=== PATIENT | male | born 1960 | race Two or more races ===

== ENCOUNTER 2020-03-28 22:49 | Emergency (ER) | payer MEDICAID ==
[~2020-03-28] VITALS: Ht 175.3 cm; Wt 77.1 kg
--- NOTE | 2020-03-28 23:02 | NUR ---
PT AAOX4. BIBSELF C/O ABDOMINAL PAIN X1 WEEK, SOB X1 DAY. COVID (+) 3WEEKS AGO, TESTED COVID NEGATIVE 3 DAYS AGO. PT PLACED IN BED 18 ON MONITOR AND PULSE OX. AWAITING FOR MD TO EVAL AND PLACE ORDERS.
--- NOTE | 2020-03-28 23:38 | NUR ---
LINE ESTABLISHED RAC 20G, BLOOD WORK SETN TO LAB. VSS.
[2020-03-28] MEDS ORDERED: PANTOPRAZOLE 40 MG VIAL ONE (23:51)
[2020-03-28] MEDS ORDERED: LIDOCAINE VISCOUS 2% UD 15 ML UDC ONE (23:51)
[2020-03-28] MEDS ORDERED: MAG HYDROX/AL HYDROX/SIMETH 30 ML UDC ONE (23:51)
[2020-03-28 23:59] LABS: BASOPHILS # (AUTO) 0.1 /CMM (0.0-0.2); EOSINOPHILS % (AUTO) 1.6 % (0.0-6.0); HEMATOCRIT 43 % (39-51); LYMPHOCYTES # (AUTO) 1.7 /CMM (0.8-4.8); LYMPHOCYTES % (AUTO) 29.3 % (20.0-44.0); MEAN CORPUSCULAR HGB CONC 35 g/dl (31.0-36.0); MEAN CORPUSCULAR VOLUME 88 fL (80-96); MONOCYTES # (AUTO) 0.4 /CMM (0.1-1.30); MONOCYTES % (AUTO) 6.4 % (2.0-12.0); NEUTROPHILS # (AUTO) 3.6 /CMM (1.8-8.9); NEUTROPHILS % (AUTO) 61.7 % (43.0-81.0); PLATELET COUNT (AUTO) 278 /CMM (150-450); RED BLOOD CELL COUNT(AUTO) 4.94 MIL/uL (4.5-6.0); WHITE BLOOD COUNT (AUTO) 5.8 K/uL (4.3-11.0)
[2020-03-29] MEDS ORDERED: IV NS 0.9% 1,000 ML BAG IV ONE
[2020-03-29] MEDS ORDERED: LIDOCAINE VISCOUS 2% UD 15 ML UDC MM ONE
[2020-03-29] MEDS ORDERED: MAG HYDROX/AL HYDROX/SIMETH 30 ML UDC PO ONE
[2020-03-29] MEDS ORDERED: PANTOPRAZOLE 40 MG VIAL IV ONE
--- NOTE | 2020-03-29 00:01 | NUR ---
PT MEDICATED. VSS.
[2020-03-29 00:09] LABS: CALCIUM, SERUM 9.5 mg/dL (8.5-10.1); CREATININE 0.9 mg/dL (0.6-1.3); POTASSIUM 3.8 mmol/L (3.5-5.1)
[2020-03-29 00:15] LABS: ALBUMIN 3.5 g/dL (3.4-5.0); BILIRUBIN,DIRECT 0.1 mg/dL (0.0-0.2); BILIRUBIN,TOTAL 0.5 mg/dL (0.2-1.0); TOTAL PROTEIN, SERUM 7.7 g/dL (6.4-8.2)
--- NOTE | 2020-03-29 00:50 | NUR ---
IV removed. Catheter intact and site benign. Pressure and 4x4 applied to site. No bleeding noted. Patient discharged to home in stable condition. Written and verbal after care instructions given. Patient verbalizes understanding of instruction.
[2020-03-29 01:02] LABS: BILIRUBIN,URINE Negative (NEGATIVE); BLOOD, URINE Trace-lysed Ery/uL (NEGATIVE); COLOR,URINE YELLOW (YELLOW); LEUKOCYTE ESTERASE ,URINE Negative (NEGATIVE); NITRITE, URINE Negative (NEGATIVE); PROTEIN,URINE Negative (NEGATIVE); UGLUCOSE Negative (NEGATIVE); UROBILINOGEN,URINE 0.2 EU/dL (0.2)
[2020-03-29 01:17] VITALS: BP 143/89
[2020-03-29 01:35] LABS: BACTERIA,URINE None seen /HPF (None Seen); RBC,URINE 0-2 /HPF (0-2); SQUAMOUS EPITHELIAL CELL,UR Few /HPF (None Seen); WBC,URINE 0-2 /HPF (0-3)
== END 2020-03-29 00:50 | disposition home or self-care (01) ==
LOC: ER 22:54
DX: J18.9 Pneumonia, unspecified organism (principal); R10.12 Left upper quadrant pain; Z20.828 Contact with and (suspected) exposure to other viral communicable diseases
CPT/HCPCS: 36415; 74176; 80048; 80076; 81001; 83690; 85025; 96361; 96374; 99284; C9113; J7030

== ENCOUNTER 2021-03-12 09:06 | Emergency (ER) | payer SELFPAY ==
[~2021-03-12] VITALS: Ht 175.3 cm; Wt 79.4 kg
[2021-03-12 09:14] VITALS: BP 161/108
--- NOTE | 2021-03-12 09:32 | NUR ---
[employer] AT BEDSIDE FOR XRAY.
--- NOTE | 2021-03-12 10:26 | NUR ---
Patient discharged to home in stable condition. Written and verbal after care instructions given. Patient verbalizes understanding of instruction.
== END 2021-03-12 10:27 | disposition home or self-care (01) ==
LOC: ER 09:09
DX: M54.16 Radiculopathy, lumbar region (principal); W01.0XXA Fall on same level from slipping, tripping and stumbling without subsequent striking against object, initial encounter; Y93.89 Activity, other specified; Y92.89 Other specified places as the place of occurrence of the external cause; Y99.8 Other external cause status
CPT/HCPCS: 72100-TC; 73502

== ENCOUNTER 2024-07-26 09:11 | Emergency (ER) | payer MEDICAID, OTHER ==
[~2024-07-26] VITALS: Ht 175.3 cm; Wt 81.6 kg
[2024-07-26] MEDS ORDERED: KETOROLAC TROMETHAMINE 15 MG/ML VIAL ONE (09:34)
[2024-07-26] MEDS: KETOROLAC TROMETHAMINE 15 MG/ML VIAL IV ONE (09:38)
[2024-07-26 09:42] LABS: BASOPHILS # (AUTO) 0.1 K/uL (0.0-0.2); BASOPHILS % (AUTO) 1.2 % (0.0-2.0); EOSINOPHILS # (AUTO) 0.1 K/uL (0.0-0.7); EOSINOPHILS % (AUTO) 2.8 % (0.0-6.0); HEMATOCRIT 45 % (39-51); HEMOGLOBIN 15.6 g/dL (13.5-17.5); LYMPHOCYTES # (AUTO) 2.1 K/uL (0.8-4.8); LYMPHOCYTES % (AUTO) 40.4 % (20.0-44.0); MEAN CORPUSCULAR HEMOGLOBIN 31 PG (26.0-33.0); MEAN CORPUSCULAR HGB CONC 35 g/dl (31.0-36.0); MEAN CORPUSCULAR VOLUME 88 fL (80-96); MONOCYTES # (AUTO) 0.3 K/uL (0.1-1.30); MONOCYTES % (AUTO) 5.6 % (2.0-12.0); NEUTROPHILS # (AUTO) 2.6 K/uL (1.8-8.9); PLATELET COUNT (AUTO) 206 K/uL (150-450); RED BLOOD CELL COUNT(AUTO) 5.09 MIL/uL (4.5-6.0); RED CELL DISTRIBUTION WIDTH 13.2 % (11.5-15.0); WHITE BLOOD COUNT (AUTO) 5.2 K/uL (4.3-11.0)
[2024-07-26 09:55] LABS: CALCIUM, SERUM 9.4 mg/dL (8.5-10.1); CARBON DIOXIDE 28 mmol/L (21-32); CHLORIDE 104 mmol/L (98-107); CREATININE 0.9 mg/dL (0.6-1.3); GLUCOSE 110 mg/dL (74-106); POTASSIUM 3.8 mmol/L (3.5-5.1); SODIUM SERUM 140 mmol/L (136-145); UREA NITROGEN, BLOOD 15 mg/dL (7-18)
[2024-07-26 09:56] LABS: ALANINE AMINOTRANSFERASE 25 U/L (12-78); ALBUMIN 3.7 g/dL (3.4-5.0); ALKALINE PHOSPHATASE 108 U/L (46-116); ASPARTATE AMINOTRANSFERASE 17 U/L (15-37); BILIRUBIN,DIRECT 0.4 mg/dL (0.0-0.2); BILIRUBIN,TOTAL 0.7 mg/dL (0.2-1.0); LIPASE 66 U/L (16-77); TOTAL PROTEIN, SERUM 7.4 g/dL (6.4-8.2)
[2024-07-26] MEDS ORDERED: CIPR-262 PO (11:50)
[2024-07-26] MEDS ORDERED: CIPROFLOXACIN HCL 500 MG TABLET ONE (12:09)
[2024-07-26] MEDS: CIPROFLOXACIN HCL 500 MG TABLET PO ONE (12:15)
[2024-07-26 12:24] VITALS: BP 138/84; TEMP 97.9; O2SAT 100
== END 2024-07-26 12:24 | disposition home or self-care (01) ==
LOC: ER 09:18
DX: N41.0 Acute prostatitis (principal); I10 Essential (primary) hypertension; Z87.19 Personal history of other diseases of the digestive system
CPT/HCPCS: 99285; 74176; 96374; 71045; 93005; 85025; 80048; 83690; 80076; 36415; 84484; J1885

== ENCOUNTER 2025-01-08 19:33 | Emergency (ER) | payer MEDICAID ==
[~2025-01-08] VITALS: Ht 167.6 cm; Wt 102.1 kg
[~2025-01-08 19:33] MED LIST: CIPR-262 PO
[2025-01-08] MEDS ORDERED: PSEUDOEPHEDRINE HCL 30 MG TABLET ONE (21:08)
[2025-01-08] MEDS ORDERED: BENZONATATE 100 MG CAPSULE PO ONE (21:08)
[2025-01-08] MEDS: PSEUDOEPHEDRINE HCL 30 MG TABLET PO ONE (21:10)
[2025-01-08] MEDS: BENZONATATE 100 MG CAPSULE PO PRN (21:10)
[2025-01-08] MEDS ORDERED: IBUPROFEN 600 MG TABLET ONE (21:17)
[2025-01-08] MEDS: IBUPROFEN 600 MG TABLET PO ONE (21:17)
[2025-01-08] MEDS ORDERED: BENZ-13 PO (21:55)
[2025-01-08] MEDS ORDERED: ALBU18HF2 INH (21:55)
[2025-01-08 22:00] VITALS: BP 164/103; TEMP 97.8; O2SAT 96
== END 2025-01-08 22:01 | disposition home or self-care (01) ==
LOC: ER 19:36
DX: R05.9 Cough, unspecified (principal); R09.81 Nasal congestion; J34.89 Other specified disorders of nose and nasal sinuses; I10 Essential (primary) hypertension; R07.9 Chest pain, unspecified; Z87.19 Personal history of other diseases of the digestive system; Z20.822 Contact with and (suspected) exposure to COVID-19
CPT/HCPCS: 71045-TC

== ENCOUNTER 2025-03-09 11:25 | Emergency (ER) | payer MEDICAID ==
[~2025-03-09] VITALS: Ht 175.3 cm; Wt 82.1 kg
[~2025-03-09 11:25] MED LIST changes: +ALBU18HF2 INH; +BENZ-13 PO
[2025-03-09 11:53] LABS: PLATELET COUNT (AUTO) 213 K/uL (150-450); RED BLOOD CELL COUNT(AUTO) 5.42 MIL/uL (4.5-6.0); RED CELL DISTRIBUTION WIDTH 13.2 % (11.5-15.0); WHITE BLOOD COUNT (AUTO) 4.7 K/uL (4.3-11.0)
[2025-03-09 11:59] LABS: CALCIUM, SERUM 8.9 mg/dL (8.5-10.1); CREATININE 0.9 mg/dL (0.6-1.3); SODIUM SERUM 143.0 mmol/L (136-145); UREA NITROGEN, BLOOD 13.0 mg/dL (7-18)
[2025-03-09 12:01] LABS: APPEARANCE,URINE CLEAR (CLEAR); BLOOD, URINE TRACE-INTA Ery/uL (NEGATIVE); LEUKOCYTE ESTERASE ,URINE NEGATIVE (NEGATIVE); NITRITE, URINE NEGATIVE (NEGATIVE); UGLUCOSE NEGATIVE (NEGATIVE)
[2025-03-09 12:07] LABS: ASPARTATE AMINOTRANSFERASE 15.0 U/L (15-37); TOTAL PROTEIN, SERUM 7.6 g/dL (6.4-8.2)
[2025-03-09 12:09] LABS: ADD URINE CULTURE NO; SQUAMOUS EPITHELIAL CELL,UR Few /HPF (None Seen)
[2025-03-09 12:50] VITALS: BP 128/67; TEMP 98.1; O2SAT 99
== END 2025-03-09 12:51 | disposition home or self-care (01) ==
LOC: ER 11:25
DX: R10.12 Left upper quadrant pain (principal); R10.32 Left lower quadrant pain
CPT/HCPCS: 36415; 80048-TC; 80076-TC; 81001; 83690-TC; 85025-TC